=== PATIENT | male | born 1995 ===

== ENCOUNTER 2021-08-09 16:32 | Emergency (ER) | payer SELFPAY ==
[2021-08-09] MEDS ORDERED: ONDANSETRON 4 MG/2 ML INJ IV ONE ×2 (16:56→19:15)
[2021-08-09] MEDS ORDERED: MORPHINE 4 MG/1 ML INJ IV ONE (16:56)
--- NOTE | 2021-08-09 16:57 | Emergency Department Report ---
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 Last alcohol use was 2 days ago. Patient states he was previously diagnosed with pancreatitis and stayed in the hospital for approximately 1 month. Patient has experienced approximately 6 episodes of nonbloody emesis and 3 episodes of diarrhea within the last 24 hours. No history of prior abdominal surgeries. Denies fever, chills, shortness of breath, rectal bleeding, hematemesis, seizure, syncope. Denies all other complaints at this time. - Related Data Previous Rx's Medication Instructions Recorded Last Taken Type Dicyclomine [Bentyl] 20 mg PO QID #20 tablet 08/09/21 Unknown Rx Ondansetron [Zofran Odt] 4 mg PO Q4H #20 tab.rapdis 08/09/21 Unknown Rx Allergies Allergy/AdvReac Type Severity Reaction Status Date / Time No Known Allergies Allergy Unverified 08/09/21 16:36 ED Review of Systems ROS: Stated complaint: CHEST PAIN/ PANCREATIC PAIN Other details as noted in HPI Other: GENERAL: Negative for fever, chills, weight change, anorexia, fatigue. ENT: Negative for ear pain, difficulty hearing, sore throat, nasal congestion, epistaxis. CARDIOVASCULAR: Positive for chest pain. PULMONARY: Negative for cough, dyspnea, wheezing, orthopnea, cyanosis. GASTROINTESTINAL: Positive for abdominal pain, nausea, vomiting, diarrhea. GENITOURINARY: Positive for testicular pain. MUSCULOSKELETAL: Negative for joint pain, joint swelling, myalgias, back pain, neck pain. NEUROLOGICAL: Negative for headache, seizure, syncope, paresthesias, weakness. INTEGUMENTARY: Negative for erythema, rash, diaphoresis, laceration, ecchymosis. HEMATOLOGICAL: Negative for hemoptysis, hematemesis, hematochezia, hematuria. PSYCHIATRIC: Negative for hallucinations, suicidal ideation, homicidal ideation, anxiety, depression. ED Past Medical Hx - Past Medical History Previous Medical History?: Yes Additional medical history: pancreatitis - Surgical History Past Surgical History?: No - Social History Smoking Status: Heavy Tobacco Smoker - Medications Home Medications: Home Medications Medication Instructions Recorded Confirmed Last Taken Type Dicyclomine [Bentyl] 20 mg PO QID #20 tablet 08/09/21 Unknown Rx Ondansetron [Zofran Odt] 4 mg PO Q4H #20 tab.rapdis 08/09/21 Unknown Rx ED Physical Exam - General Limitations: No Limitations - Other Other exam information: General: Awake and alert. No acute distress. Head: Atraumatic, normocephalic. Eyes: EOMI. Pupils are equal and round. Normal sclera and conjunctiva. ENT: Oral mucosa is moist. Normal pharyngeal exam. Neck: Supple. No lymphadenopathy. Pulmonary: No respiratory distress. Clear to auscultation bilaterally. Cardiac: Regular rate and rhythm. Pulses are palpable and equal bilaterally. No lower extremity cyanosis or edema. Skin: Warm and dry. No rashes. Abdomen: Soft, non-protuberant. Diffuse lower abdominal tenderness and epigastric tenderness without guarding, rigidity, or rebound. Bowel sounds are normal. No organomegaly or masses noted. 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 Normal external inspection. No evidence of inguinal hernia. Right testicular tenderness without appreciable edema. Tender nonmobile nodule to the posterior aspect of the left testicle. No blood or discharge at the urethral meatus. No rashes or lesions. Back: Normal alignment. No CVA tenderness. Extremities: Symmetrical. Full range of motion intact. Neurological: Alert and oriented, appropriately interactive, no focal deficits. Psych: Cooperative. Appropriate mood and affect. Speech is evenly metered. Thoughts are logically construed. ED Course Vital Signs 08/09/21 08/09/21 16:44 20:00 Temperature 98.6 F Pulse Rate 93 H Respiratory 16 18 Rate Blood Pressure 140/91 O2 Sat by Pulse 99 Oximetry ED Medical Decision Making - Lab Data Result diagrams: 08/09/21 17:08 08/09/21 17:08 - EKG Data 08/09/21 16:58 EKG shows normal sinus rhythm with a ventricular rate of 71 bpm. Normal axis. Normal ME interval. Normal QT interval. Good R wave progression. Borderline ST segment elevation in the inferior/anterior leads. No STEMI per attending emergency physician. - Radiology Data [facility] [address] [place] [address] Cat Scan Report Signed Patient: VICENTE FUENTES R#: [id number] : 1995 Acct:[id number] Age/Sex: 26 / M ADM Date: 08/09/21 Loc: ED Attending Dr: Ordering Physician: JANA IQBAL Date of Service: 08/09/21 Procedure(s): CT abdomen pelvis w con Accession Number(s): [id number] cc: JANA IQBAL CT abdomen pelvis w con INDICATION / CLINICAL INFORMATION: abd pain, elevated LFT's. TECHNIQUE: Axial CT imaging of abdomen and pelvis was obtained with IV contrast. Coronal and sagittal reformatted imaging obtained and reviewed. All CT scans at this location are performed using CT dose reduction for ALARA by means of automated exposure control. COMPARISON: None available. FINDINGS: CT abdomen with IV contrast demonstrates mild hepatomegaly due to mild hepatic steatosis. The liver is otherwise normal. Spleen, pancreas, kidneys, and adrenal glands all appear grossly unremarkable. Gallbladder is present without appreciable abnormality. No biliary dilatation. CT pelvis with contrast does not demonstrate mass, free fluid, or focal inflammatory change. A normal appendix is present within the right lower quadrant. Prostate gland demonstrates normal appearance. Visualized lung bases are clear. No significant osseous abnormality noted. IMPRESSION: 1. No acute finding within the abdomen or pelvis. 2. Mild hepatomegaly due to hepatic steatosis. Signer Name: Phylicia Morse MD Signed: 08/09/2021 8:26 PM Workstation Name: [id number] Transcribed By: Dictated By: Phylicia Morse MD Electronically Authenticated By: Phylicia Morse MD Signed Date/Time: 08/09/212025 DD/ 22 TD/TT: - Medical Decision Making Differential diagnosis including but not limited to: pericarditis, pancreatitis, hepatobiliary disease, testicular torsion, myocarditis, dehydration, electrode abnormality, acute coronary syndrome, cardiac arrhythmia On reevaluation, patient remains stable. Repeat abdominal exam is benign. No further vomiting in the emergency department. He has asked if he can eat mult iple times. Labs show transaminitis. Inflammatory markers are within normal limits. Ammonia and coagulation studies are within normal limits. Troponin is negative. Testicular ultrasound is unremarkable. CT of the abdomen/pelvis shows hepatic steatosis without acute process. Patient is hemodynamically stable without clinical evidence to suggest hepatic failure or emergent surgical condition warranting further diagnostic work-up at this time. Patient will be discharged home with antiemetics, appropriate analgesics, and referral to GI specialist for close outpatient follow-up. Emphasized the importance of calling the GI specialist office tomorrow and bringing a copy of today's CT results to the appointment. Patient expressed understanding and is agreeable to plan of care. Lifestyle modifications discussed. Alcohol cessation advised. Strict return precautions provided. History, exam, diagnostic testing, and current condition do not suggest worrisome pathology to warrant further testing, continued ED treatment, admission, or surgical evaluation at this point. Given the low probability of a significant medical illness, it would be more likely to result in harm than benefit to perform further testing at this stage. Discussed findings, presumptive diagnosis, need for follow-up and specific signs/symptoms that should prompt immediate return to the emergency department. Instructions were explained in detail to the patient in addition to giving written discharge information. Patient expressed understanding and was given the opportunity to ask questions, all of which were satisfactorily answered prior to discharge home. Critical care attestation.: If time is entered above; I have spent that time in minutes in the direct care of this critically ill patient, excluding procedure time. ED Disposition Clinical Impression: Transaminitis Disposition: 01 HOME / SELF CARE / HOMELESS Is pt being admited?: No Does the pt Need Aspirin: No Condition: Stable Instructions: Liver Function Tests Additional Instructions: Take Zofran as directed for nausea/vomiting. Take Bentyl as directed for intestinal discomfort. Do not take Tylenol until otherwise instructed by GI specialist. Do not consume any alcohol. Rest. Drink plenty of fluids. Follow-up with [facility] this week. Call tomorrow to schedule an appointment. See referral information below. Bring a copy of today's imaging results with you to your follow-up appointment. Return to the emergency department immediately for new or worsening symptoms. Specifically, return to the emergency department immediately for fever, dehydration, worsening pain, mental status changes, abnormal bleeding/bruising, or any other concerns. Prescriptions: Dicyclomine [Bentyl] 20 mg PO QID #20 tablet Ondansetron [Zofran Odt] 4 mg PO Q4H #20 tab.rapdis Referrals: PRIMARY CARE,MD [Primary Care Provider] - 3-5 Days [facility] [Provider Group] - 3-5 Days Time of Disposition: 20:43 HEART Score - HEART Score History: Slightly suspicious EKG: Non-specific Age: < 45 Risk factors: No known risk factors Troponin: Troponin T < 0.010 ng/mL (0.00-0.029) 08/09/21 17:08 Troponin: < normal limit HEART Score: 1 - Critical Actions Critical Actions: 0-3 pts:0.9-1.7%risk of adverse cardiac event.Candidate for discharge
[2021-08-09 17:27] LABS: Basophils # (Auto) 0.1 K/mm3 (0.0-0.1); Eosinophils # (Auto) 0.1 K/mm3 (0.0-0.4); Eosinophils % (Auto) 1.6 % (0.0-4.3); Hematocrit 43.9 % (35.5-45.6); Hemoglobin 15.2 gm/dl (11.8-15.2); Lymphocytes # (Auto) 1.7 K/mm3 (1.2-5.4); Lymphocytes % (Auto) 29.7 % (13.4-35.0); Mean Corpuscular HGB Conc 35 % (32-34); Mean Corpuscular Volume 93 fl (84-94); Monocytes # (Auto) 0.6 K/mm3 (0.0-0.8); Monocytes % (Auto) 11.1 % (0.0-7.3); Platelet Count 192 K/mm3 (140-440); Red Blood Count 4.74 M/mm3 (3.65-5.03); Red Cell Distribution Width 13.4 % (13.2-15.2)
--- NOTE | 2021-08-09 17:37 | XRay Report ---
CHEST PA AND LATERAL VIEWS INDICATION: chest pain. COMPARISON: None. FINDINGS: Support devices: None. Heart: Within normal limits. Lungs/Pleura: No acute pulmonary or pleural findings. IMPRESSION: 1. No acute findings. Signer Name: Brent Barfield MD Signed: 08/09/2021 5:33 PM Workstation Name: [id number]
[2021-08-09 17:39] LABS: INR 0.95 (0.87-1.13); Partial Thromboplastin Time 26.3 Sec. (24.2-36.6)
[2021-08-09 17:49] LABS: Erythrocyte Sedimentation Rate 1 mm/Hr (0-20)
[2021-08-09 17:59] LABS: Alanine Aminotransferase 116 units/L (7-56); Albumin 4.3 g/dL (3.9-5); Blood Urea Nitrogen 5 mg/dL (9-20); Calcium 9.7 mg/dL (8.4-10.2); Hemolysis Index 8
[2021-08-09 18:00] LABS: BUN/Creatinine Ratio 7
[2021-08-09] MEDS ORDERED: SODIUM CHLORIDE 0.9% 1000 ML 1,000 ML IV ONE (18:19)
--- NOTE | 2021-08-09 18:42 | Ultrasound Report ---
ULTRASOUND SCROTUM INDICATION: testicular pain. COMPARISON None available. FINDINGS -- RIGHT TESTIS: Size: 3.8 cm. Echotexture: Normal. Color Doppler Flow: Normal. Lesions: None. EPIDIDYMIS: Size: Normal. Echotexture: Normal. Color Doppler Flow: Normal. Lesions: None. Hydrocele: None. Varicocele: None. Additional Findings: None. FINDINGS -- LEFT TESTIS: Size: 4.3 cm. Echotexture: Normal. Color Doppler Flow: Normal. Lesions: None. EPIDIDYMIS: Size: Normal. Echotexture: Normal. Color Doppler Flow: Normal. Lesions: None. Hydrocele: None. Varicocele: None. Additional Findings: None. IMPRESSION: 1. No sonographic abnormality of the scrotum. Signer Name: Brent Barfield MD Signed: 08/09/2021 6:38 PM Workstation Name: [id number]
[2021-08-09] MEDS ORDERED: MORPHINE 2 MG/1 ML INJ IV ONE (19:15)
--- NOTE | 2021-08-09 20:31 | Cat Scan Report ---
CT abdomen pelvis w con INDICATION / CLINICAL INFORMATION: abd pain, elevated LFT's. TECHNIQUE: Axial CT imaging of abdomen and pelvis was obtained with IV contrast. Coronal and sagittal reformatte d imaging obtained and reviewed. All CT scans at this location are performed using CT dose reduction for ALARA by means of automated exposure control. COMPARISON: None available. FINDINGS: CT abdomen with IV contrast demonstrates mild hepatomegaly due to mild hepatic steatosis. The liver i s otherwise normal. Spleen, pancreas, kidneys, and adrenal glands all appear grossly unremarkable. Ga llbladder is present without appreciable abnormality. No biliary dilatation. CT pelvis with contrast does not demonstrate mass, free fluid, or focal inflammatory change. A normal appendix is present within the right lower quadrant. Prostate gland demonstrates normal appearance. Visualized lung bases are clear. No significant osseous abnormality noted. IMPRESSION: 1. No acute finding within the abdomen or pelvis. 2. Mild hepatomegaly due to hepatic steatosis. Signer Name: Phylicia Morse MD Signed: 08/09/2021 8:26 PM Workstation Name: [id number]
[2021-08-09 21:49] VITALS: BP 151/85
--- NOTE | 2021-08-10 11:08 | Electrocardiograph Report ---
[facility] Test Date: 2021-08-09 Test Time: 16:47:07 Pat Name: VICENTE FUENTES Department: Room: Gender: M Production Machine Tender: RAMSES : 1995 Requested By: SARA DAMICO Order Number: [id number] Reading MD: Calvin Young Measurements Intervals [place] Rate: 71 P: 48 MA: 146 QRS: 81 QRSD: 85 T: 56 QT: 371 QTc: 404 Interpretive Statements Sinus rhythm ST elevation suggests acute pericarditis No previous ECG available for comparison Electronically Signed On 08-10-2021 11:08:14 EDT by Calvin Young
== END 2021-08-09 20:54 | disposition home or self-care (01) ==
LOC: ED 16:32
DX: R74.01 Elevation of levels of liver transaminase levels (principal); R07.89 Other chest pain; F17.200 Nicotine dependence, unspecified, uncomplicated; Z98.890 Other specified postprocedural states; Z79.899 Other long term (current) drug therapy
CPT/HCPCS: 36415; 71046; 74177; 80053; 82140; 83690; 83735; 84484; 85025; 85610; 85652; 85730; 86140; 93005; 93975; 96361; 96374; 96375; 96376; 99284; J2270; J2405; J7030; Q9967